=== PATIENT | male | born 1950 | race Hispanic/Latino ===

== ENCOUNTER 2025-04-19 05:33 | Day surgery (SDC) | payer OTHER ==
[2025-04-19] VITALS (11 sets, daily range): BP systolic 105–170; BP diastolic 55–82; PULSE 44–55; RESP 15–18; TEMP 97.1–97.7
[~2025-04-19] VITALS: Ht 167.6 cm; Wt 71.2 kg
[~2025-04-19 05:33] MED LIST: AMLO-257 PO
[2025-04-19] MEDS: 0.9%NACL 1000ML 1,000 ML IV ONE (06:28)
[2025-04-19] MEDS ORDERED: proPOFol 10 MG/ML 20ML VIAL IV ONE ×2 (07:33→07:44)
== END 2025-04-19 09:00 | disposition home or self-care (01) ==
LOC: SUH 05:33 → DAH 05:33 → SUH 09:00
PROVIDERS: ATTEND Internal Medicine
DX: R93.3 Abnormal findings on diagnostic imaging of other parts of digestive tract (principal); C25.9 Malignant neoplasm of pancreas, unspecified; K86.89 Other specified diseases of pancreas; I10 Essential (primary) hypertension; Z79.899 Other long term (current) drug therapy
CPT/HCPCS: 43242; J7030; J2704 ×2; A4620; A4649; A4215 ×3; A4223; A4222; A4221; A4663; A4606; 43238; J3490